=== PATIENT | male | born 1995 | race Caucasian/White ===

== ENCOUNTER 2019-10-14 17:47 | Emergency (ER) | payer OTHER | END 2019-10-14 20:29 | disposition left against medical advice (07) | LOC: ER 17:47 | DX: Z53.21 Procedure and treatment not carried out due to patient leaving prior to being seen by health care provider (principal) ==

== ENCOUNTER 2023-03-12 03:51 | Emergency (ER) | payer OTHER ==
[~2023-03-12] VITALS: Ht 185.4 cm; Wt 113.4 kg
[2023-03-12 04:08] VITALS: BP 163/104
[2023-03-12] MEDS ORDERED: CEPH500 PO (04:59)
[2023-03-12] MEDS ORDERED: SULTRIDS PO (04:59)
== END 2023-03-12 05:16 | disposition home or self-care (01) ==
LOC: ER 03:51
DX: L03.113 Cellulitis of right upper limb (principal); Z23 Encounter for immunization
CPT/HCPCS: 99283-25; A9270